=== PATIENT | female | born 1960 ===

== ENCOUNTER 2019-11-01 10:27 | Emergency (ER) | payer SELFPAY ==
[2019-11-01] MEDS ORDERED: Ketorolac Tromethamine 60 MG/2 ML VIAL ONE (10:38)
--- NOTE | 2019-11-01 11:07 | RAD ---
Cervical spine 4 views HISTORY: Neck pain. FINDINGS: There is reversal of the normal lordotic curvature on the lateral view. Spondylolisthesis a t the C4-5 level is 0.5 cm. Minimal spondylolisthesis at the C3-4 level. Disc space narrowing and minimal degenerative retrolisthesis at the C5-6 and C6-7 levels. Prominent osteophytosis throughout t he lower vertebral bodies and facets. No acute fracture or dislocation evident. Cervicothoracic junction is intact. IMPRESSION: Prominent osseous degenerative changes. Spondylolisthesis at the C4-5 level is likely rel ated to the degenerative changes given the lack of prevertebral soft tissue swelling. If there is clinical concern for instability, MRI could be used to evaluate the ligamentous structures.
== END 2019-11-01 10:42 | disposition home or self-care (01) ==
LOC: ERS 10:27
DX: M54.30 Sciatica, unspecified side (principal); M54.2 Cervicalgia; M19.90 Unspecified osteoarthritis, unspecified site; M06.9 Rheumatoid arthritis, unspecified; J44.9 Chronic obstructive pulmonary disease, unspecified; F41.9 Anxiety disorder, unspecified; F32.9 Major depressive disorder, single episode, unspecified; Z86.73 Personal history of transient ischemic attack (TIA), and cerebral infarction without residual deficits; W18.30XA Fall on same level, unspecified, initial encounter
CPT/HCPCS: 72050; 96372; J1885